=== PATIENT | male | born 1965 | race Hispanic/Latino ===

== ENCOUNTER 2021-07-27 11:28 | Emergency (ER) | payer BC ==
[2021-07-27 14:46] LABS: #Basophils 0.1 10x3/uL (0.0-0.2); #Eosinphils 0.4 10x3/uL (0.0-0.5); #Monocytes 0.9 10x3/uL (0.0-1.1); #Neutrophils 3.7 10x3/uL (1.5-8.4); %Basophils 0.8 % (0.0-2.0); %Eosinophils 5.8 % (0.0-6.0); %Lymphocytes 18.9 % (18.0-47.0); %Monocytes 14.7 % (0.0-10.0); %Neutrophils 59.6 % (40.0-75.0); Hemoglobin 13.8 g/dL (13.5-17.5); Mean Corpuscular HGB CONC 33.3 g/dL (32.0-36.0); Mean Corpuscular Hemoglobin 33.5 pg (27.0-33.0); Mean Corpuscular Volume 100.7 fl (81.2-95.1); Mean Platelet Volume 10.8 fl (7.4-10.4); Platelet Count 147 10x3/uL (150-450); RBC Distribution Width 12.1 % (11.5-14.5); Red Blood Cell (RBC) Count 4.12 10x6/uL (4.32-5.72); White Blood Cell (WBC) Count 6.2 10x3/uL (3.5-10.5)
[2021-07-27 14:57] LABS: ALT (SGPT) 31 U/L (8-55); AST (SGOT) 31 U/L (5-34); Albumin 3.6 g/dL (3.5-5.0); Alkaline Phosphatase 113 U/L (40-110); Anion Gap 12 mmol/L (10-20); BUN (Urea Nitrogen) 8 mg/dL (8.4-25.7); Bilirubin, Total 0.3 mg/dL (0.2-1.2); Calc. Creatinine Clearance 0 mL/min (70-130); Calcium 8.1 mg/dL (7.8-10.44); Carbon Dioxide 25 mmol/L (22-29); Chloride 106 mmol/L (98-107); Globulin 2.4 g/dL (2.4-3.5); Glucose 100 mg/dL (70-105); Lipase 17 U/L (8-78); Potassium 3.9 mmol/L (3.5-5.1); Sodium 139 mmol/L (136-145)
[2021-07-27 15:39] LABS: Bilirubin Neg (Negative); Blood, Urine Negative (Negative); Glucose, Urine (Dipstick) Normal (Negative); Ketone, Urine Negative (Negative); Leukocyte Negative (Negative); Nitrite Negative (Negative); Protein, Urine (Dipstick) Negative (Neg-Trace); Specific Gravity, Urine 1.015 (1.002-1.036)
[2021-07-27 15:41] LABS: Clarity Clear (Clear)
[2021-07-27 16:10] LABS: Troponin I Less than 0.010 ng/mL (< 0.028)
== END 2021-07-27 16:30 | disposition home or self-care (01) ==
LOC: CSHERS 11:28
DX: R07.9 Chest pain, unspecified (principal); Z20.822 Contact with and (suspected) exposure to COVID-19; F17.210 Nicotine dependence, cigarettes, uncomplicated
CPT/HCPCS: 36415; 71045; 80053; 81003; 83690; 84484; 85025; 93005; U0003; U0005

== ENCOUNTER 2023-06-29 14:39 | Emergency (ER) | payer BC, SELFPAY | END 2023-06-29 16:31 | disposition home or self-care (01) | LOC: CSHERS 14:39 | DX: S20.219A Contusion of unspecified front wall of thorax, initial encounter (principal); F17.210 Nicotine dependence, cigarettes, uncomplicated; X58.XXXA Exposure to other specified factors, initial encounter | CPT/HCPCS: 71045; 93005 ==

== ENCOUNTER 2023-08-25 11:05 | Emergency (ER) | payer OTHER, SELFPAY ==
[2023-08-25 11:49] LABS: #Basophils 0.02 10x3/uL (0.0-0.2); #Eosinphils 0.06 10x3/uL (0.0-0.5); #Monocytes 0.29 10x3/uL (0.0-1.1); #Neutrophils 3.11 10x3/uL (1.5-8.4); %Basophils 0.4 % (0.0-2.0); %Eosinophils 1.3 % (0.0-6.0); %Lymphocytes 24.8 % (18.0-47.0); %Monocytes 6.3 % (0.0-10.0); Hematocrit 40.5 % (38.8-50.0); Hemoglobin 13.7 g/dL (13.5-17.5); Mean Corpuscular HGB CONC 33.8 g/dL (32.0-36.0); Mean Corpuscular Hemoglobin 32.9 pg (27.0-33.0); Mean Corpuscular Volume 97.1 fL (81.2-95.1); Platelet Count 181 10x3/uL (150-450); RBC Distribution Width 12.8 % (11.5-14.5); Red Blood Cell (RBC) Count 4.17 10x6/uL (4.32-5.72); White Blood Cell (WBC) Count 4.6 10x3/uL (3.5-10.5)
[2023-08-25 12:01] LABS: ALT (SGPT) 14 U/L (8-55); AST (SGOT) 22 U/L (5-34); Albumin 4.1 g/dL (3.5-5.0); Alkaline Phosphatase 91 U/L (40-110); Anion Gap 12 mmol/L (10-20); BUN (Urea Nitrogen) 9 mg/dL (8.4-25.7); CK (CPK) 115 U/L (30-200); Calc. Creatinine Clearance 0 mL/min (70-130); Calcium 9.3 mg/dL (7.8-10.44); Carbon Dioxide 23 mmol/L (22-29); Chloride 106 mmol/L (98-107); Estimated GFR 103; Globulin 2.4 g/dL (2.4-3.5); Glucose 167 mg/dL (70-105); Potassium 3.7 mmol/L (3.5-5.1); Protein, Total 6.5 g/dL (6.0-8.3); Sodium 137 mmol/L (136-145)
[2023-08-25 12:04] LABS: Troponin I Less than 0.010 ng/mL (< 0.028)
[2023-08-25] MEDS ORDERED: Ketorolac Tromethamine 30 MG (1 mL) VIAL ONE (13:07)
== END 2023-08-25 13:23 | disposition home or self-care (01) ==
LOC: CSHERS 11:05
DX: T75.4XXA Electrocution, initial encounter (principal); R55 Syncope and collapse; F17.210 Nicotine dependence, cigarettes, uncomplicated; W86.8XXA Exposure to other electric current, initial encounter
CPT/HCPCS: 70450; 70486; 80053; 82550; 84484; 85025; 93005; 96361; 96374; J1885